=== PATIENT | male | born 1965 | race Caucasian/White ===

== ENCOUNTER 2021-02-18 10:56 | Emergency (ER) | payer BC ==
--- NOTE | 2021-02-18 13:12 | RAD REPORT ---
EXAM DESCRIPTION: US - Extremity Venous Uni Ltd - 02/18/2021 12:35 pm COMPARISON: None. TECHNIQUE: Real-time sonographic evaluation of the left lower extremity deep venous system was perfo rmed. FINDINGS: The left greater saphenous vein is incompletely compressible. There is filling defect yolanda g the baker of the vein. . The left femoral vein is compressible at its mid and distal aspect. The le ft popliteal vein is compressible. No intraluminal filling defects seen. IMPRESSION: Deep venous thrombosis in the left greater saphenous vein. The thrombus is eccentrically located in the vessel and may be chronic.
[2021-02-18] MEDS ORDERED: ENOXAPARIN 100 MG/ML SYR SQ ONE (14:06)
[2021-02-18 14:09] LABS: Absolute Lymphocytes (CBC) 1.5 K/uL (0.7-4.9); Basophils % 1.1 % (0-1.3); Hematocrit 46.7 % (39.6-49.0); Lymphocytes % 30.5 % (15.3-44.8); MPV 9.1 fL (7.6-11.3); RBC Red Blood Cell Count 4.87 M/uL (4.33-5.43)
[2021-02-18 14:17] LABS: Protime INR 0.95
[2021-02-18 14:28] LABS: ALT/SGPT 36 U/L (12-78); AST/SGOT 19 U/L (15-37); Albumin 3.8 g/dL (3.4-5.0); Alkaline Phosphatase 47 U/L (45-117); BUN Blood Urea Nitrogen 11 mg/dL (7-18); Bicarbonate 25 mmol/L (21-32); Bilirubin Total 0.4 mg/dL (0.2-1.0); Glucose Level 93 mg/dL (74-106); Potassium 4.5 mmol/L (3.5-5.1); Protein, Total 6.9 g/dL (6.4-8.2); Sodium Level 141 mmol/L (136-145)
--- NOTE | 2021-02-18 14:49 | EDPHYS ---
Physician Documentation [facility] Name: Ignacio Comer Age: 55 yrs Sex: Male : 1965 Arrival Date: 02/18/2021 Time: 11:01 Bed 25 Private MD: ED Physician Patel Hall HPI: 02/18 13:35 This 55 yrs old Male presents to ER via Ambulatory with complaints of Leg pm1 Swelling. 13:35 The patient presents with pain, that is acute, tenderness. The complaints affect the pm1 medial aspect of left thigh. Context: The problem was sustained at an unknown site, resulted from extended driving for the past 2-3 days, the patient can fully bear weight, the patient is able to ambulate, Problem is a result from a previous injury: No. Onset: The symptoms/episode began/occurred 3 day(s) ago. Modifying factors: The symptoms are alleviated by nothing. the symptoms are aggravated by nothing. Associated signs and symptoms: Pertinent negatives chest pain, shortness of breath. Treatment prior to arrival includes: no previous treatment. Severity of symptoms: in the emergency department the symptoms are unchanged. The patient has experienced a previous episode, DVT 1-2 years ago. The patient has not recently seen a physician. Historical: - Allergies: 11:09 No Known Allergies; ll1 - PMHx: 11:09 blood clots legs; ll1 - PSHx: 11:09 vein SX, shoulder SX; ll1 - Immunization history:: Client reports having NOT received the Covid vaccine. Flu vaccine is not up to date. - Social history:: Smoking status: Patient reports the use of cigarette tobacco products, smokes one pack cigarettes per day. ROS: 13:35 Constitutional: Negative for fever, chills, and weight loss. pm1 13:35 Cardiovascular: Negative for chest pain, palpitations, and edema, Respiratory: Negative for shortness of breath, cough, wheezing, and pleuritic chest pain. 13:35 Skin: Negative for injury, rash, and discoloration, Neuro: Negative for headache, weakness, numbness, tingling, and seizure. 13:35 MS/extremity: Positive for pain, tenderness, of the medial aspect of left thigh, Negative for decreased range of motion, deformity. 13:35 All other systems are negative. Exam: 13:35 Constitutional: This is a well developed, well nourished patient who is awake, alert, pm1 and in no acute distress. Head/Face: Normocephalic, atraumatic. 13:35 Skin: Warm, dry with normal turgor. Normal color with no rashes, no lesions, and no evidence of cellulitis. 13:35 Cardiovascular: Exam negative for acute changes, Rate: normal, Rhythm: regular, Pulses: no pulse deficits are appreciated, Edema: is not appreciated. 13:35 Respiratory: Exam negative for acute changes, respiratory distress, shortness of breath. 13:35 Musculoskeletal/extremity: Extremities: grossly normal except: noted in the medial aspect of left thigh: mild tenderness with small area of palpable cord-like vein . 13:35 Neuro: Exam negative for acute changes, Orientation: is normal, Mentation: is normal, Motor: is normal, moves all fours. Vital Signs: 11:08 BP 140 / 85; Pulse 68; Resp 17; Temp 98.5; Pulse Ox 98% ; Weight 104.33 kg; Height 6 ll1 ft. 1 in. (185.42 cm); Pain 1/10; 13:12 BP 127 / 89; Pulse 54; Resp 16; Pulse Ox 98% ; zb 14:32 BP 132 / 83; Pulse 56; Resp 16; Pulse Ox 100% on R/A; zb 11:08 Body Mass Index 30.34 (104.33 kg, 185.42 cm) ll1 MDM: 12:03 Patient medically screened. pm1 13:32 Data reviewed: vital signs. Data interpreted: Pulse oximetry: on room air is 98 %. pm1 Interpretation: normal. 13:36 ED course: Patient reported that he would not take any NOAC due to the cost. He was pm1 spending $600/ month for eliquis last year for his DVT with [employer] insurance. Informed the patient that he has to either take a NOAC or coumadin. Got the patient a coupon for xarelto and he will take the prescription since the coupon makes it free for 30 days and $10 for a 90 day prescription. 14:47 Counseling: I had a detailed discussion with the patient and/or guardian regarding: the pm1 historical points, exam findings, and any diagnostic results supporting the discharge/admit diagnosis, lab results, radiology results, the need for outpatient follow up, hematology, to return to the emergency department if symptoms worsen or persist or if there are any questions or concerns that arise at home. 02/18 13:35 Order name: CBC with Diff; Complete Time: 14:15 pm1 02/18 13:35 Order name: CMP; Complete Time: 14:43 pm1 02/18 11:14 Order name: Extremity Venous Uni Ltd US; Complete Time: 13:17 ll1 02/18 13:35 Order name: [id number]-[id number]; Complete Time: 14:43 pm1 Administered Medications: 13:40 Drug: Lovenox (enoxaparin) 1 mg/kg Route: Sub-Q; Site: right lower abdomen; zb 15:12 Follow up: Response: No adverse reaction zb Disposition: 02/19 07:02 Co-signature as Attending Physician, Patel Hall MD. rn Disposition Summary: 02/18/21 14:48 Discharge Ordered Location: Home pm1 Problem: new pm1 Symptoms: have improved pm1 Condition: Stable pm1 Diagnosis - Acute embolism and thrombosis of other specified deep vein of left lower extremity pm1 Followup: pm1 - With: Emergency Department - When: As needed - Reason: Worsening of condition Followup: pm1 - With: Private Physician - When: 2 - 3 days - Reason: Recheck today's complaints, Continuance of care, Re-evaluation by your physician Discharge Instructions: - Discharge Summary Sheet pm1 - Deep Vein Thrombosis pm1 Forms: - Medication Reconciliation Form pm1 - Thank You Letter pm1 - Antibiotic Education pm1 - Prescription Opioid Use pm1 Prescriptions: - Xarelto 15 mg Oral Tablet - take 1 tablet by ORAL route 2 times per day for 21 days; 42 tablet; Refills: 0, pm1 Product Selection Permitted Signatures: Dispatcher [employer] Patel Cagle MD MD rn Marinas, Patrick, NP DIE TRIMMER pm1 June Puga RN RN ll1 Di Yuen RN RN zb
--- NOTE | 2021-02-18 14:49 | ER ---
Nurse's Notes [facility] Name: Ignacio Comer Age: 55 yrs Sex: Male : 1965 Arrival Date: 02/18/2021 Time: 11:01 Bed 25 Private MD: Diagnosis: Acute embolism and thrombosis of other specified deep vein of left lower extremity Presentation: 02/18 11:08 Chief complaint: Patient states: L leg pain and swelling for 1 day. History of DVT's ll1 after long road trips. Has been travelling the past three days. No fever. Coronavirus screen: Client denies travel out of the [place] in the last 14 days. At this time, the client does not indicate any symptoms associated with coronavirus-19. Ebola Screen: Patient denies travel to an Ebola-affected area in the 21 days before illness onset. Initial Sepsis Screen: Does the patient meet any 2 criteria? No. Patient's initial sepsis screen is negative. Does the patient have a suspected source of infection? Yes: Other: r/o DVT. Risk Assessment: Do you want to hurt yourself or someone else? Patient reports no desire to harm self or others. Onset of symptoms was February 18, 2021. 11:08 Method Of Arrival: Ambulatory ll1 11:08 Acuity: AZEB 3 ll1 Historical: - Allergies: 11:09 No Known Allergies; ll1 - PMHx: 11:09 blood clots legs; ll1 - PSHx: 11:09 vein SX, shoulder SX; ll1 - Immunization history:: Client reports having NOT received the Covid vaccine. Flu vaccine is not up to date. - Social history:: Smoking status: Patient reports the use of cigarette tobacco products, smokes one pack cigarettes per day. Screenin:04 Abuse screen: Denies threats or abuse. Denies injuries from another. Nutritional zb screening: No deficits noted. Tuberculosis screening: No symptoms or risk factors identified. Fall Risk No fall in past 12 months (0 pts). No secondary diagnosis (0 pts). No IV (0 pts). Ambulatory Aid- None/Bed Rest/Nurse Assist (0 pts). Gait- Normal/Bed Rest/Wheelchair (0 pts) Mental Status- Oriented to own ability (0 pts). Total Painter Fall Scale indicates No Risk (0-24 pts). Assessment: 13:03 General: Appears in no apparent distress. comfortable, Behavior is calm, cooperative, zb appropriate for age. Pain: Complains of pain in left hamstring and posterior aspect of left knee Pain currently is 1 out of 10 on a pain scale. Quality of pain is described as tender, Pain began 1 day ago. Neuro: Level of Consciousness is awake, alert, obeys commands, Oriented to Appropriate for age. Cardiovascular: Denies fatigue, nausea, shortness of breath, Heart tones S1 S2 present Patient's skin is warm and dry. Respiratory: Airway is patent Respiratory effort is even, unlabored, Respiratory pattern is regular, symmetrical. Derm: Skin is intact, is healthy with good turgor, Skin is dry, Skin is normal, Skin temperature is warm. Musculoskeletal: Range of motion: intact in all extremities. 14:02 Reassessment: Patient appears in no apparent distress at this time. Patient and/or zb family updated on plan of care and expected duration. Pain level reassessed. Patient is alert, oriented x 3, equal unlabored respirations, skin warm/dry/pink. 15:12 Reassessment: Patient appears in no apparent distress at this time. Patient and/or zb family updated on plan of care and expected duration. Pain level reassessed. Patient is alert, oriented x 3, equal unlabored respirations, skin warm/dry/pink. Vital Signs: 11:08 BP 140 / 85; Pulse 68; Resp 17; Temp 98.5; Pulse Ox 98% ; Weight 104.33 kg; Height 6 ll1 ft. 1 in. (185.42 cm); Pain 1/10; 13:12 BP 127 / 89; Pulse 54; Resp 16; Pulse Ox 98% ; zb 14:32 BP 132 / 83; Pulse 56; Resp 16; Pulse Ox 100% on R/A; zb 11:08 Body Mass Index 30.34 (104.33 kg, 185.42 cm) ll1 ED Course: 11:01 Patient arrived in ED. mr 11:09 Triage completed. ll1 11:09 Arm band placed on. ll1 11:51 Patient placed in an exam room, on a stretcher. ll1 11:54 Francis Josue NP is PHCP. pm1 11:54 Patel Hall MD is Attending Physician. pm1 12:34 Extremity Venous Uni Ltd US In Process Unspecified. EDMS 12:54 Di Yuen, RN is Primary Nurse. zb 13:30 Inserted saline lock: 20 gauge in left antecubital area, using aseptic technique. Blood zb collected. 14:33 Patient has correct armband on for positive identification. Pulse ox on. NIBP on. zb 14:33 No provider procedures requiring assistance completed. zb 15:12 IV discontinued, intact, bleeding controlled, No redness/swelling at site. Pressure zb dressing applied. Administered Medications: 13:40 Drug: Lovenox (enoxaparin) 1 mg/kg Route: Sub-Q; Site: right lower abdomen; zb 15:12 Follow up: Response: No adverse reaction zb Outcome: 14:48 Discharge ordered by MD. pm1 15:12 Discharged to home ambulatory. zb 15:12 Condition: stable 15:12 Discharge instructions given to patient, Instructed on discharge instructions, follow up and referral plans. medication usage, Demonstrated understanding of instructions, follow-up care, medications, Prescriptions given X 1. 15:12 Patient left the ED. zb Signatures: Dispatcher [employer] EDAL Yvrose Cheney Patrick, FARMWORKER [employer] FARMWORKER [employer] pm1 June Puga RN RN ll1 Di Yuen, LILLIE RN zb Corrections: (The following items were deleted from the chart) 13:13 13:03 Cardiovascular: Heart tones S1 S2 present Patient's skin is warm and dry. zb zb
[2021-02-18 15:27] VITALS: TEMP 98.5
[2021-02-18 15:31] VITALS: BP 132/83; O2SAT 100
== END 2021-02-18 15:12 | disposition home or self-care (01) ==
LOC: ER 10:56
DX: I82.492 Acute embolism and thrombosis of other specified deep vein of left lower extremity (principal); F17.210 Nicotine dependence, cigarettes, uncomplicated
CPT/HCPCS: 85025; 36415; 85610; 80053; 93971; 96372; 99284; J1650

== ENCOUNTER 2024-06-30 11:04 | Emergency (ER) | payer BC ==
--- OUTSIDE RECORDS SUMMARY | 2024-06-30 11:07 | XMS REPORT | Continuity of Care Document ---
Author Name Unknown Address [address] [place] [address] [address] [employer] Address [address] [facility]. [address] [place] [address] Care Team Providers Care Systems Management Consultant Name Role Phone Marlene Attending Clinician Unavail able Marlene Admitting Clinician Unavail able Payers Payer Name Policy Type Policy Number Effective Date Expirati on Date Source [place] [id number] 2017 00:00:00 Encounters Start Date/Time End Date/Time Encounter Type Admission Type Attending Clinicians Care Facility Care Department Encounter ID Source 2022-04-20 00:00:00 2022-04-20 00:00:00 Outpatient Sandra Mata AO AO [id number] [facility] 2022-03-28 00:00:00 2022-03-28 00:00:00 Outpatient Sandra Mata AOSM AOSM [id number] [facility]
--- NOTE | 2024-06-30 12:22 | RAD REPORT ---
EXAMINATION: US RIGHT LOWER EXTREMITY VENOUS DOPPLER CLINICAL INDICATION: PAIN RIGHT TECHNIQUE: Complete bilateral duplex sonography of the RIGHT lower extremity veins was performed. The examination included compression for vein patency, color Doppler imaging and flow augmentation in response to distal compression of the distal external iliac, common femoral, femoral, popliteal, tibi al, and great and small saphenous veins. COMPARISON: 02/18/2021 FINDINGS: Duplex sonography testing of the veins of the RIGHT lower extremity was performed. DVT is noted from the right superficial femoral vein to the popliteal vein. IMPRESSION: Positive for right-sided DVT as detailed.
--- NOTE | 2024-06-30 12:23 | RAD REPORT ---
EXAMINATION:Lower Extremity Artery Uni Ltd CLINICAL INDICATION: Male, 59 years old. Pain;Swelling RIGHT TECHNIQUE: Arterial duplex ultrasound was performed of the right lower extremity with real-time, colo r-flow, and spectral wave Doppler evaluation. Ankle brachial indices were not performed. COMPARISON: No prior exam. FINDINGS: No plaque throughout the evaluated arterial system. Triphasic waveforms are seen throughout the evaluated left lower extremity arterial system, to the le pedro of the dorsalis pedis artery. No other suspicious findings. IMPRESSION: No evidence of significant peripheral vascular disease.
--- NOTE | 2024-06-30 12:55 | ER ---
Nurse's Notes [facility] Name: Ignacio Comer Age: 59 yrs Sex: Male : 1965 Arrival Date: 06/30/2024 Time: 11:04 Bed 14 Private MD: Diagnosis: Acute embolism and thrombosis of other specified deep vein of right lower extremity Presentation: 06/30 11:17 Chief complaint: Patient states: feels like he has a blood clot in right leg, he has iw not had his blood thinners and was driving a lot. He starred back on his xarelto on Saturday. Coronavirus screen: At this time, the client does not indicate any symptoms associated with coronavirus-19. Ebola Screen: No symptoms or risks identified at this time. Initial Sepsis Screen: Does the patient meet any 2 criteria? No. Patient's initial sepsis screen is negative. Does the patient have a suspected source of infection? No. Patient's initial sepsis screen is negative. Risk Assessment: Do you want to hurt yourself or someone else? Patient reports no desire to harm self or others. 11:17 Method Of Arrival: Ambulatory iw 11:17 Acuity: AZEB 3 iw 12:30 Onset of symptoms was June 30, 2024. ph Historical: - PMHx: 11:19 blood clots legs; iw - PSHx: 11:19 vein SX; iw - Immunization history:: Adult Immunizations unknown. - Infectious Disease History:: Denies. - Family history:: not pertinent. - Hospitalizations: : No recent hospitalization is reported. - Social history:: Smoking status: unknown. Screenin:30 [facility] ED Fall Risk Assessment (Adult) History of falling in the last 3 months, ph including since admission No falls in past 3 months (0 pts) Confusion or Disorientation No (0 pts) Intoxicated or Sedated No (0 pts) Impaired Gait No (0 pts) Mobility Assist Device Used No (0 pt) Altered Elimination No (0 pt) Score/Fall Risk Level 0 - 2 = Low Risk Oriented to surroundings, Maintained a safe environment, Hourly rounding (assess needs \T\ fall precautionary measures) done. Abuse screen: Denies threats or abuse. Denies injuries from another. Nutritional screening: No deficits noted. Tuberculosis screening: No symptoms or risk factors identified. Assessment: 12:30 General: Appears in no apparent distress. Behavior is calm, cooperative. Pain: ph Complains of pain in right leg. Neuro: Level of Consciousness is awake, alert, obeys commands, Oriented to person, place, time, situation. Derm: Skin is pink, warm \T\ dry. Vital Signs: 11:17 BP 129 / 95; Pulse 69; Resp 16; Temp 98.2; Pulse Ox 98% on R/A; Pain 1/10; iw 12:45 BP 124 / 87; Pulse 72; Resp 18; Temp 98; Pulse Ox 99% on R/A; ph 11:17 Pain Scale: Adult ED Course: 11:07 Patient arrived in ED. im 11:18 Patel Hall MD is Attending Physician. rn 11:19 Triage completed. iw 12:05 Antoinette Arreaga RN is Primary Nurse. ph 12:05 Arm band placed on Patient placed in an exam room, on a stretcher. ph 12:10 Extremity Venous Uni Ltd US In Process Unspecified. EDMS 12:10 Lower Extremity Artery Uni Ltd US In Process Unspecified. EDMS 12:30 Patient has correct armband on for positive identification. Bed in low position. Call ph light in reach. Side rails up X 1. Pulse ox on. NIBP on. 13:20 No provider procedures requiring assistance completed. Patient did not have IV access ph during this emergency room visit. Administered Medications: No medications were administered Medication: 17:52 VIS not applicable for this client. ph Outcome: 12:55 Discharge ordered by . rn 13:20 Patient left the ED. iw 13:20 Discharged to home ambulatory, ph 13:20 Condition: good 13:20 Discharge instructions given to patient, Instructed on discharge instructions, follow up and referral plans. Demonstrated understanding of instructions, follow-up care, Signatures: Dispatcher [employer] Diandra Del Valle RN RN Patel Hall MD MD rn Hall, Patricia, RN RN Estefani Garcia Corrections: (The following items were deleted from the chart) 11:20 11:17 BP 129 / 95; Pulse 69bpm; Resp 16bpm; Pulse Ox 98% RA; iw iw
--- NOTE | 2024-06-30 12:55 | EDPHYS ---
Physician Documentation [facility] Name: Ignacio Comer Age: 59 yrs Sex: Male : 1965 Arrival Date: 06/30/2024 Time: 11:04 Bed 14 Private MD: ED Physician Patel Hall HPI: 06/30 11:29 This 59 yrs old Male presents to ER via Ambulatory with complaints of Leg Swelling - rn right. 11:29 The patient presents with pain, swelling. The complaints affect the posterior aspect of rn right knee. Onset: The symptoms/episode began/occurred 1 week(s) ago. Modifying factors: The symptoms are alleviated by nothing. the symptoms are aggravated by nothing. Severity of symptoms: At their worst the symptoms were mild, in the emergency department the symptoms are unchanged. The patient has experienced similar episodes in the past. Patient reports has had DVT in both lower extremities, is supposed be taking Xarelto but did not take it for 2 weeks in a row. Now here with right leg swelling and pain behind the right knee. No trauma. No fever or chills.. Patient states took double his Xarelto dose today because he feels he has a clot.. Historical: - PMHx: 11:19 blood clots legs; iw - PSHx: 11:19 vein SX; iw - Immunization history:: Adult Immunizations unknown. - Infectious Disease History:: Denies. - Family history:: not pertinent. - Hospitalizations: : No recent hospitalization is reported. - Social history:: Smoking status: unknown. ROS: 11:29 Constitutional: Negative for fever, chills, and weight loss, Cardiovascular: Negative rn for chest pain, palpitations, and edema, Respiratory: Negative for shortness of breath, cough, wheezing, and pleuritic chest pain, MS/Extremity: Positive for swelling and pain to right lower extremity Exam: 11:29 Constitutional: This is a well developed, well nourished patient who is awake, alert, rn and in no acute distress. Cardiovascular: Regular rate and rhythm. No pulse deficits. Respiratory: No increased work of breathing, no retractions or nasal flaring. MS/ Extremity: Pulses equal, no cyanosis. Neurovascular intact. Full, normal range of motion. Right lower extremity 1 cm greater circumference compared to left lower extremity Vital Signs: 11:17 BP 129 / 95; Pulse 69; Resp 16; Temp 98.2; Pulse Ox 98% on R/A; Pain 1/10; iw 12:45 BP 124 / 87; Pulse 72; Resp 18; Temp 98; Pulse Ox 99% on R/A; ph 11:17 Pain Scale: Adult iw MDM: 11:18 Medical Screening Exam initiated rn 12:53 Differential diagnosis: DVT. Data reviewed: vital signs, nurses notes, radiologic rn studies, ultrasound, and as a result, I will discharge patient. Counseling: I had a detailed discussion with the patient and/or guardian regarding the historical points, exam findings, and any diagnostic results supporting the discharge/admit diagnosis, radiology results, the need for outpatient follow up, to return to the emergency department if symptoms worsen or persist or if there are any questions or concerns that arise at home. Special discussion: I discussed with the patient/guardian in detail that at this point there is no indication for admission to the hospital. It is understood, however, that if the symptoms persist or worsen the patient needs to return immediately for re-evaluation. ED course: Patient with confirmed DVT on today's ultrasound, consistent with where his pain and swelling is. Patient was not taking his Xarelto for 2 weeks, now has been doubling his Xarelto for the last 3 days. Told him okay to go back to single day dosing as prescribed and given return precautions. This is not considered a failure of anticoagulation just compliance so we will put back on Xarelto and discharged home. No indication for emergent admission at this time.. 06/30 11:22 Order name: Extremity Venous [employer] ; Complete Time: 12:30 rn 06/30 11:31 Order name: Lower Extremity Artery [employer] US; Complete Time: 12:30 rn Administered Medications: No medications were administered Disposition Summary: 06/30/24 12:55 Discharge Ordered Notes: Location: Home rn Problem: new rn Symptoms: have improved rn Condition: Stable rn Diagnosis - Acute embolism and thrombosis of other specified deep vein of right lower extremity rn Followup: rn - With: Private Physician - When: As needed - Reason: Recheck today's complaints, Re-evaluation by your physician Discharge Instructions: - Discharge Summary Sheet rn - Deep Vein Thrombosis rn Forms: - Medication Reconciliation Form rn - Antibiotic rn immunology - Prescription Opioid Use rn - Patient Portal Instructions rn - Leadership Thank You Letter rn Signatures: Dispatcher [employer] EDMS Damon, Diandra, Patel Ba RN, MD MD rn Hall, Patricia, RN RN ph
[2024-06-30 16:04] VITALS: BP 129/95; TEMP 98.2; O2SAT 98
== END 2024-06-30 13:20 | disposition home or self-care (01) ==
LOC: ER 11:04
DX: I82.491 Acute embolism and thrombosis of other specified deep vein of right lower extremity (principal)
CPT/HCPCS: 93926; 93971; 99283